=== PATIENT | male | born 1960 | race Caucasian/White ===

== ENCOUNTER 2019-09-10 12:11 | Emergency (ER) | payer MEDICAID ==
--- NOTE | 2019-09-10 12:32 | EDM.PDOC ---
ED HPI GENERAL MEDICAL PROBLEM - General Chief Complaint: Gastrointestinal Problem Stated Complaint: DIARRHEA Time Seen by Provider: 09/10/19 12:15 Source of Information: Reports: Patient History Limitations: Reports: No Limitations - History of Present Illness INITIAL COMMENTS - FREE TEXT/NARRATIVE: HISTORY AND PHYSICAL: History of present illness: Is a 59-year-old male who presents to the emergency room with complaints of diarrhea over the past 2 days. He reports he does have a history of diverticulitis which is typically diet controlled. A few weeks ago he was placed on dual antibiotic therapy for his diverticulitis and stated he felt well after completion of these medications. He admits that he has been eating high- fat diet, sugary foods and meats -believes this is causing him to have the loose stools. He typically does have blood in his stools do to hemorrhoids, no new or unusual change in bowel consistency. Patient denies any fever, chills, headache, change in vision, syncope or near syncope. Denies any chest pain, back pain, shortness of breath or cough. Denies any abdominal pain, nausea, vomiting or dysuria. Patient has been eating and drinking appropriately. Review of systems: As per history of present illness and below otherwise all systems reviewed and negative. Past medical history: As per history of present illness and as reviewed below otherwise noncontributory. Surgical history: As per history of present illness and as reviewed below otherwise noncontributory. Social history: See social history for further information Family history: As per history of present illness and as reviewed below otherwise noncontributory. Physical exam: General: Developed and well-nourished 59-year-old male. Alert and oriented. Nontoxic-appearing and in no acute distress. HEENT: Atraumatic, normocephalic, pupils equal and reactive bilaterally, negative for conjunctival pallor or scleral icterus, mucous membranes moist, TMs normal bilaterally, throat clear, neck supple, nontender, trachea midline. No drooling or trismus noted. No meningeal signs. No hot potato voice noted. Lungs: Clear to auscultation, breath sounds equal bilaterally, chest nontender. Heart: S1S2, regular rate and rhythm without overt murmur Abdomen: Soft, nondistended, nontender. Negative for masses or hepatosplenomegaly. Negative for costovertebral tenderness. Pelvis: Stable nontender. Skin: Intact, warm, dry. No lesions or rashes noted. Extremities: Atraumatic, moves all extremities per self without difficulty or deficits, negative for cords or calf pain. Neurovascular unremarkable. Neuro: Awake, alert, oriented. Cranial nerves II through XII unremarkable. Cerebellum unremarkable. Motor and sensory unremarkable throughout. Exam nonfocal. Notes: Lab called to inform me that the potassium was slightly hemolyzed, therefore will have a slightly elevated reading. Patient declined having any additional blood redrawn for repeat chemistry. CT shows moderate severity sigmoid colonic diverticulosis without evidence of diverticulitis. Tiny nonobstructing stone in the mid upper portion of the right kidney. No hydronephrosis. Mild of debris within the stomach, presumably food debris. Diffuse hepatic steatosis. The gallbladder is nondistended. No appendicitis. Patient has not been able to give a stool sample while here in the emergency room. I did give him a written prescription to do outpatient labs for stool studies along with education. We discussed signs and symptoms that would prompt him to return to the emergency room. Upon my reassessment of the patient he appears appropriate for discharge. Vital signs remained stable. Supportive care measures were reviewed and discussed. Voices understanding and is agreeable to plan of care. Denies any further questions or concerns at this time. Diagnostics: CBC, CMP, UA, stool studies Therapeutics: IV fluid, Bentyl Prescription: None Impression: Diverticulosis Plan: 1. Please make sure you are adhering to the recommended diet to avoid any future diarrhea episodes. Increase your oral fluids to prevent dehydration. May want to add bulky foods to help form your stools, bananas/rice/toast etc... 2. You have been given supplies to get a stool sample to bring back to the emergency room if the diarrhea worsens or continues. 3. You may alternate Tylenol and/or ibuprofen as needed for pain. 4. Follow-up with your primary care provider and or assistant federal public defender as we discussed. Return to the ED as needed and as discussed. Definitive disposition and diagnosis as appropriate pending reevaluation and review of above. - Related Data Allergies Allergy/AdvReac Type Severity Reaction Status Date / Time No Known Allergies Allergy Verified 09/10/19 12:28 ED ROS GENERAL - Review of Systems Review Of Systems: Comprehensive ROS is negative, except as noted in HPI. ED EXAM, GI/ABD - Physical Exam Exam: See Below (See dictation) Course - Vital Signs Last Recorded V/S: Last Vital Signs Temp 97.5 F 09/10/19 12:29 Pulse 109 H 09/10/19 12:29 Resp 18 09/10/19 12:29 BP 137/88 09/10/19 12:29 Pulse Ox 97 09/10/19 12:29 - Orders/Labs/Meds Orders: Active Orders 24 hr Category Date Time Status CAMPYLOBACTER CULT [MREF] Stat Lab 09/10/19 12:33 Ordered OVA & PARASITES BY IMMUNOASSAY [MREF] Stat Lab 09/10/19 12:33 Ordered STOOL CULTURE/SHIGA TOXIN [MREF] Stat Lab 09/10/19 12:33 Ordered Lactated Ringers [Ringers, Lactated] 1,000 ml Med 09/10/19 12:45 Active IV ASDIRECTED Medication Orders Lactated Ringer's (Ringers, Lactated) 1,000 mls @ 999 mls/hr IV ASDIRECTED ALIX Labs: Laboratory Tests 09/10/19 09/10/19 Range/Units 12:55 12:55 WBC 10.40 (4.0-11.0) K/uL RBC 5.13 (4.50-5.90) M/uL Hgb 15.1 (13.0-17.0) g/dL Hct 45.3 (38.0-50.0) % MCV 88.3 (80.0-98.0) fL MCH 29.4 (27.0-32.0) pg MCHC 33.3 (31.0-37.0) g/dL RDW Std Deviation 45.1 (28.0-62.0) fl RDW Coeff of Rickie 14 (11.0-15.0) % Plt Count 181 (150-400) K/uL MPV 10.00 (7.40-12.00) fL Neut % (Auto) 64.7 (48.0-80.0) % Lymph % (Auto) 18.8 (16.0-40.0) % Sutter % (Auto) 9.2 (0.0-15.0) % Eos % (Auto) 7.2 H (0.0-7.0) % Baso % (Auto) 0.1 (0.0-1.5) % Neut # (Auto) 6.7 H (1.4-5.7) K/uL Lymph # (Auto) 2.0 (0.6-2.4) K/uL Sutter # (Auto) 1.0 H (0.0-0.8) K/uL Eos # (Auto) 0.8 H (0.0-0.7) K/uL Baso # (Auto) 0.0 (0.0-0.1) K/uL Nucleated RBC % 0.0 /100WBC Nucleated RBCs # 0 K/uL Sodium 140 (136-148) mmol/L Potassium 5.2 H (3.5-5.1) mmol/L Chloride 106 (98-107) mmol/L Carbon Dioxide 23.8 (21.0-32.0) mmol/L BUN 11 (7.0-18.0) mg/dL Creatinine 1.0 (0.8-1.3) mg/dL Est Cr Clr Drug Dosing TNP Estimated GFR (MDRD) > 60.0 ml/min Glucose 123 H (74-106) mg/dL Calcium 8.4 L (8.5-10.1) mg/dL Total Bilirubin 0.4 (0.2-1.0) mg/dL AST 65 H (15-37) IU/L ALT 75 H (14-63) IU/L Alkaline Phosphatase 57 (46-116) U/L Total Protein 7.7 (6.4-8.2) g/dL Albumin 3.7 (3.4-5.0) g/dL Globulin 4.0 (2.6-4.0) g/dL Albumin/Globulin Ratio 0.9 (0.9-1.6) Meds: Medications Generic Name Dose Route Start Last Admin Trade Name Freq PRN Reason Stop Dose Admin Lactated Ringer's 1,000 mls @ 999 mls/hr 09/10/19 12:45 Ringers, Lactated IV ASDIRECTED ALIX Discontinued Medications Generic Name Dose Route Start Last Admin Trade Name Freq PRN Reason Stop Dose Admin Dicyclomine HCl 20 mg 09/10/19 12:39 Bentyl PO 09/10/19 12:40 ONETIME ONE Departure - Departure Time of Disposition: 14:37 Disposition: Home, Self-Care 01 Clinical Impression: Diverticulosis - Discharge Information Instructions: Diverticulosis Referrals: Adiel Paz MD [Primary Care Provider] - Forms: ED Department Discharge Additional Instructions: The following information is given to patients seen in the emergency department who are being discharged to home. This information is to outline your options for follow-up care. We provide all patients seen in our emergency department with a follow-up referral. The need for follow-up, as well as the timing and circumstances, are variable depending upon the specifics of your emergency department visit. If you don't have a primary care physician on staff, we will provide you with a referral. We always advise you to contact your personal physician following an emergency department visit to inform them of the circumstance of the visit and for follow-up with them and/or the need for any referrals to a consulting specialist. The emergency department will also refer you to a specialist when appropriate. This referral assures that you have the opportunity for follow-up care with a specialist. All of these measure are taken in an effort to provide you with optimal care, which includes your follow-up. Under all circumstances we always encourage you to contact your private physician who remains a resource for coordinating your care. When calling for follow-up care, please make the office aware that this follow-up is from your recent emergency room visit. If for any reason you are refused follow-up, please contact the [facility] Emergency Department at and asked to speak to the emergency department charge nurse. [facility] Primary Care [address] [place] [address] [place] [address] Thank you for choosing the [facility] emergency department in [place] for your medical needs today. It was a pleasure caring for you. You were seen in the emergency department for diarrhea. 1. Please make sure you are adhering to the recommended diet to avoid any future diarrhea episodes. Increase your oral fluids to prevent dehydration. May want to add bulky foods to help form your stools, bananas/rice/toast etc... 2. You have been given supplies to get a stool sample to bring back to the emergency room if the diarrhea worsens or continues. 3. You may alternate Tylenol and/or ibuprofen as needed for pain. 4. Follow-up with your primary care provider and or assistant federal public defender as we discussed. Return to the ED as needed and as discussed. Sepsis Event Note (ED) - Focused Exam Vital Signs: Vital Signs Temp Pulse Resp BP Pulse Ox 09/10/19 12:29 97.5 F 109 H 18 137/88 97 - My Orders Last 24 Hours: My Active Orders 09/10/19 12:33 CAMPYLOBACTER CULT [MREF] Stat OVA & PARASITES BY IMMUNOASSAY [MREF] Stat STOOL CULTURE/SHIGA TOXIN [MREF] Stat 09/10/19 12:45 Lactated Ringers [Ringers, Lactated] 1,000 ml IV ASDIRECTED - Assessment/Plan Last 24 Hours: My Active Orders 09/10/19 12:33 CAMPYLOBACTER CULT [MREF] Stat OVA & PARASITES BY IMMUNOASSAY [MREF] Stat STOOL CULTURE/SHIGA TOXIN [MREF] Stat 09/10/19 12:45 Lactated Ringers [Ringers, Lactated] 1,000 ml IV ASDIRECTED
[2019-09-10] MEDS ORDERED: Dicyclomine 10 MG Cap PO ONE (12:39)
[2019-09-10] MEDS ORDERED: Lactated Ringers 1,000 ML IV SCH (12:45)
[2019-09-10 13:25] LABS: BLOOD UREA NITROGEN,BUN 11 mg/dL (7.0-18.0); CARBON DIOXIDE,CO2 23.8 mmol/L (21.0-32.0); CHLORIDE,CL 106 mmol/L (98-107); GLUCOSE RANDOM 123 mg/dL (74-106); POTASSIUM,K 5.2 mmol/L (3.5-5.1); SODIUM,NA 140 mmol/L (136-148)
--- NOTE | 2019-09-10 14:31 | CT ---
INDICATION: History of diverticulosis and diverticulitis, diarrhea, bloody stool. COMPARISON: None available. TECHNIQUE: Routine CT of the abdomen and pelvis without contrast, renal stone protocol. FINDINGS: Limited visualization of the lung bases reveal no suspicious pulmonary opacities. No pericardial or pleural effusion. There is diffuse hepatic steatosis present. No splenomegaly. The left adrenal gland is unremarkable in appearance. In the right adrenal gland there is a lesion measuring 29 x 25 mm with an additional lesion measuring 18 mm, by areas of calcifications. The average Hounsfield attenuation of the dominant lesion is 27. The pancreas is unremarkable in appearance. No definite suspicious lymphadenopathy in the abdomen or pelvis. The urinary bladder is unremarkable. Mild dystrophic calcification in the prostate gland. Pelvic sidewalls are negative for adenopathy. Moderate severity sigmoid colonic diverticulosis without evidence of diverticulitis. The appendix is normal in appearance. The gallbladder is nondistended. Tiny nonobstructing calculus in the mid to upper portion of the right kidney. Small cyst in the low portion of the right kidney. No hydronephrosis in either kidney. No abdominal aortic aneurysm. No aggressive appearing osseous lesion. Large amount of debris within the stomach, presumably food debris. IMPRESSION: 1. Diffuse hepatic steatosis. 2. Large amount of debris within the stomach, presumably food debris. 3. Colonic diverticulosis, worst in the sigmoid colon where it is moderate in severity, without definite acute diverticulitis. 4. Tiny nonobstructing calculus in the right kidney. 5. No pancreatitis. 6. The gallbladder is nondistended. 7. No appendicitis. Please note that all CT scans at this facility use dose modulation, iterative reconstruction, and/or weight-based dosing when appropriate to reduce radiation dose to as low as reasonably achievable. Dictated by Carloz Albert MD @ Sep 10 2019 2:04PM (Electronically Signed)
== END 2019-09-10 15:00 | disposition home or self-care (01) ==
LOC: MW.ED 12:11
DX: K57.30 Diverticulosis of large intestine without perforation or abscess without bleeding (principal)
CPT/HCPCS: 36415; 74176; 80053; 85025; 96360; 99284; J7120; 99283

== ENCOUNTER 2020-06-02 07:18 | Emergency (ER) | payer MEDICARE, MEDICAID ==
[2020-06-02] MEDS ORDERED: Sodium Chloride 0.9% 2.5 ML Syringe FLUSH PRN (07:26)
--- NOTE | 2020-06-02 07:32 | EDM.PDOC ---
ED HPI GENERAL MEDICAL PROBLEM - General Chief Complaint: General Stated Complaint: WEAKENESS Time Seen by Provider: 06/02/20 07:19 - History of Present Illness INITIAL COMMENTS - FREE TEXT/NARRATIVE: 59-year-old male with a history of multiple personality disorder and COPD who is presenting with now resolved epigastric and lower chest ache. Patient states that this is been going on for at least 3 weeks it is an uncomfortable feeling aching sensation in his epigastric region with some mild radiation up into the chest but he denies chest pain. It is sometimes associated with discomfort in his left elbow. He says that initially it would happen at night when he laid down but now sometimes happens when he is sitting up as well. No nausea or vomiting no shortness of breath no lightheadedness, syncope or near syncope. Jona murillo also states that he has been having trouble with vertigo on and off for the last 5 years. He last experienced the vertigo 3 or 4 weeks ago. The symptoms are also associated with a sensation that his body is made of the lead that it is hard for him to move. He denies clear trigger with food. He denies prior cardiac history. He is an intermittent smoking history. Right now he is asymptomatic. Chest Pain Score (Numeric/FACES): 2 - Related Data Allergies Allergy/AdvReac Type Severity Reaction Status Date / Time shrimp Allergy Other Verified 06/02/20 07:25 Seafood Allergy Other Uncoded 06/02/20 07:25 Home Meds: Home Meds FLUoxetine [PROzac] 20 mg PO DAILY 06/02/20 [History] Montelukast [Singulair] 10 mg PO DAILY 06/02/20 [History] OLANZapine [Olanzapine] 20 mg PO DAILY 06/02/20 [History] Omeprazole 20 mg PO DAILY 14 Days #14 tablet. 06/02/20 [Rx] Prazosin [Minpress] 1 mg PO DAILY 06/02/20 [History] Propranolol [Inderal] 10 mg PO DAILY 06/02/20 [History] Tamsulosin [Flomax] 0.4 mg PO DAILY 06/02/20 [History] buPROPion [Wellbutrin SR] 100 mg PO DAILY 06/02/20 [History] Past Medical History Cardiovascular History: Reports: Arrhythmia Gastrointestinal History: Reports: Diverticulosis Psychiatric History: Reports: Bipolar, PTSD, Other (See Below) Other Psychiatric History: Disassociative Disorder - Infectious Disease History Infectious Disease History: Reports: TB Social & Family History - Family History Family Medical History: No Pertinent Family History ED ROS GENERAL - Review of Systems Review Of Systems: See Below Free Text/Narrative/Comment: General: No fever. Skin: No rash. Eyes: No vision problems. ENT: No sore throat. Neck: No neck stiffness. Respiratory: No shortness of breath. Cardiac: No chest pain. Gastrointestinal: Per HPI Urinary: No dysuria. Musculoskeletal: No myalgias/arthralgias. Neurologic: No headache. ED EXAM, GENERAL - Physical Exam Exam: See Below Free Text/Narrative:: General Appearance: No acute distress, appears comfortable Skin: No rash HEENT: Normocephalic/atraumatic, sclera anicteric, mucous membranes moist Neck: Normal range of motion Chest and Lungs: Bilateral breath sounds, clear to auscultation Cardiovascular: Regular rate and rhythm, no murmur Abdomen: Soft, non-tender Back: Normal Musculoskeletal: No edema or tenderness Neurologic: Awake, alert, no obvious deficits, moving all extremities Psychiatric: Appropriate, cooperative #1 Interpretation EKG Date: 06/02/20 Time: 07:20 EKG Interpretation Comments: Normal sinus rhythm rate of 98 normal axis intervals no acute ischemia Course - Vital Signs Last Recorded V/S: Last Vital Signs Temp 96.2 F L 06/02/20 07:26 Pulse 100 06/02/20 07:26 Resp 18 06/02/20 07:26 BP 145/87 H 06/02/20 07:26 Pulse Ox 93 L 06/02/20 07:26 - Orders/Labs/Meds Orders: Active Orders 24 hr Category Date Time Status Sodium Chloride 0.9% [Saline Flush] Med 06/02/20 07:26 Active 10 ml FLUSH ASDIRECTED PRN Sodium Chloride 0.9% [Saline Flush] Med 06/02/20 07:26 Active 2.5 ml FLUSH ASDIRECTED PRN Saline Lock Insert [OM.PC] Stat Oth 06/02/20 07:26 Ordered Medication Orders Sodium Chloride (Sodium Chloride 0.9% 10 Ml Syringe) 10 ml FLUSH ASDIRECTED PRN PRN Reason: Keep Vein Open Last Admin: 06/02/20 07:39 Dose: 10 ml Documented by: Admin: 06/02/20 07:38 Dose: 10 ml Documented by: CARMEN Sodium Chloride (Sodium Chloride 0.9% 2.5 Ml Syringe) 2.5 ml FLUSH ASDIRECTED PRN PRN Reason: Keep Vein Open Last Admin: 06/02/20 07:39 Dose: 2.5 ml Documented by: CARMEN Labs: Laboratory Tests 06/02/20 06/02/20 Range/Units 07:33 07:33 WBC 8.73 (4.0-11.0) K/uL RBC 5.28 (4.50-5.90) M/uL Hgb 15.9 (13.0-17.0) g/dL Hct 45.8 (38.0-50.0) % MCV 86.7 (80.0-98.0) fL MCH 30.1 (27.0-32.0) pg MCHC 34.7 (31.0-37.0) g/dL RDW Std Deviation 42.1 (28.0-62.0) fl RDW Coeff of Rickie 13 (11.0-15.0) % Plt Count 167 (150-400) K/uL MPV 10.40 (7.40-12.00) fL Neut % (Auto) 76.6 (48.0-80.0) % Lymph % (Auto) 15.8 L (16.0-40.0) % Kane % (Auto) 6.4 (0.0-15.0) % Eos % (Auto) 0.9 (0.0-7.0) % Baso % (Auto) 0.3 (0.0-1.5) % Neut # (Auto) 6.7 H (1.4-5.7) K/uL Lymph # (Auto) 1.4 (0.6-2.4) K/uL Kane # (Auto) 0.6 (0.0-0.8) K/uL Eos # (Auto) 0.1 (0.0-0.7) K/uL Baso # (Auto) 0.0 (0.0-0.1) K/uL Nucleated RBC % 0.0 /100WBC Nucleated RBCs # 0 K/uL Sodium 138 (136-148) mmol/L Potassium 4.0 (3.5-5.1) mmol/L Chloride 103 (98-107) mmol/L Carbon Dioxide 23.3 (21.0-32.0) mmol/L BUN 11 (7.0-18.0) mg/dL Creatinine 1.1 (0.8-1.3) mg/dL Est Cr Clr Drug Dosing 80.34 mL/min Estimated GFR (MDRD) > 60.0 ml/min Glucose 224 H (74-106) mg/dL Calcium 8.9 (8.5-10.1) mg/dL Total Bilirubin 0.4 (0.2-1.0) mg/dL AST 25 (15-37) IU/L ALT 69 H (14-63) IU/L Alkaline Phosphatase 71 (46-116) U/L Troponin I < 0.050 (0.000-0.056) ng/mL Total Protein 7.7 (6.4-8.2) g/dL Albumin 3.8 (3.4-5.0) g/dL Globulin 3.9 (2.6-4.0) g/dL Albumin/Globulin Ratio 1.0 (0.9-1.6) Lipase 91 (73-393) U/L Meds: Medications Generic Name Dose Route Start Last Admin Trade Name Freq PRN Reason Stop Dose Admin Sodium Chloride 10 ml 06/02/20 07:26 06/02/20 07:39 Sodium Chloride 0.9% 10 Ml Syringe FLUSH 10 ml ASDIRECTED PRN Administration Keep Vein Open Sodium Chloride 2.5 ml 06/02/20 07:26 06/02/20 07:39 Sodium Chloride 0.9% 2.5 Ml Syringe FLUSH 2.5 ml ASDIRECTED PRN Administration Keep Vein Open Departure - Departure Time of Disposition: 08:48 Disposition: Home, Self-Care 01 Condition: Good Clinical Impression: GERD (gastroesophageal reflux disease) - Discharge Information *PRESCRIPTION DRUG MONITORING PROGRAM REVIEWED*: Not Applicable *COPY OF PRESCRIPTION DRUG MONITORING REPORT IN PATIENT ABRAHAM: Not Applicable Prescriptions: Omeprazole 20 mg PO DAILY 14 Days #14 tablet. Instructions: Gastroesophageal Reflux Disease, Adult, [id number] Referrals: Adiel Paz MD [Primary Care Provider] - 3 Days Forms: ED Department Discharge Additional Instructions: I do think the discomfort and ache that you have been having is most likely related to acid related disease in your stomach. I recommend that you take the antacid medication 30 minutes before breakfast every day for the next 2 weeks. Please be sure to follow-up with your primary care doctor. If you experience severe chest pain shortness of breath or any other new symptoms or concern you please call your doctor right away or return to the ER The following information is given to patients seen in the emergency department who are being discharged to home. This information is to outline your options for follow-up care. We provide all patients seen in our emergency department with a follow-up referral. The need for follow-up, as well as the timing and circumstances, are variable depending upon the specifics of your emergency department visit. If you don't have a primary care physician on staff, we will provide you with a referral. We always advise you to contact your personal physician following an emergency department visit to inform them of the circumstance of the visit and for follow-up with them and/or the need for any referrals to a consulting specialist. The emergency department will also refer you to a specialist when appropriate. This referral assures that you have the opportunity for follow-up care with a specialist. All of these measure are taken in an effort to provide you with optimal care, which includes your follow-up. Under all circumstances we always encourage you to contact your private physician who remains a resource for coordinating your care. When calling for follow-up care, please make the office aware that this follow-up is from your recent emergency room visit. If for any reason you are refused follow-up, please contact the [facility] Emergency Department at and asked to speak to the emergency department charge nurse. Sepsis Event Note (ED) - Focused Exam Vital Signs: Vital Signs Temp Pulse Resp BP Pulse Ox 06/02/20 07:26 96.2 F L 100 18 145/87 H 93 L - My Orders Last 24 Hours: My Active Orders 06/02/20 07:26 Sodium Chloride 0.9% [Saline Flush] 10 ml FLUSH ASDIRECTED PRN Sodium Chloride 0.9% [Saline Flush] 2.5 ml FLUSH ASDIRECTED PRN Saline Lock Insert [OM.PC] Stat - Assessment/Plan Last 24 Hours: My Active Orders 06/02/20 07:26 Sodium Chloride 0.9% [Saline Flush] 10 ml FLUSH ASDIRECTED PRN Sodium Chloride 0.9% [Saline Flush] 2.5 ml FLUSH ASDIRECTED PRN Saline Lock Insert [OM.PC] Stat Assessment:: 59-year-old male presenting with what appears to be evening in the morning epigastric aching that seems most consistent with GERD. ACS considered I think it is less likely given lack of chest pain shortness of breath or other secondary symptoms. However, troponin is pending. EKG is without acute ischemia. Patient has no tachycardia or hypoxia no pleuritic chest pain and no shortness of breath PE felt unlikely. Nothing suggest aortic dissection to me. No signs of pericarditis on EKG. Patient's neurologic exam is nonfocal nothing suggest CVA. Right now the patient is asymptomatic. Evaluation here is unremarkable trial of PPIs and primary care follow-up seem reasonable. 0842: Patient's labs and x-ray are normal. Symptoms remain resolved. We will trial daily PPI patient will follow up with his primary care doctor.
[2020-06-02] MEDS: Sodium Chloride 0.9% 10 ML Syringe FLUSH PRN ×2 (07:38→07:39)
[2020-06-02 07:59] LABS: BLOOD UREA NITROGEN,BUN 11 mg/dL (7.0-18.0); CARBON DIOXIDE,CO2 23.3 mmol/L (21.0-32.0); CHLORIDE,CL 103 mmol/L (98-107); GLUCOSE RANDOM 224 mg/dL (74-106); LIPASE 91 U/L (73-393); SODIUM,NA 138 mmol/L (136-148)
--- NOTE | 2020-06-02 08:32 | CR ---
INDICATION: Epigastric pain. COMPARISON: none TECHNIQUE: Two view chest. FINDINGS: The lungs are clear. The heart, mediastinum and pulmonary vessels are of normal size. There is no evidence of pleural fluid. IMPRESSION: Negative chest. Dictated by Mihir John MD @ Jun 02 2020 8:31AM Signed by Dr. Mihir John @ Jun 02 2020 8:31AM
== END 2020-06-02 09:02 | disposition home or self-care (01) ==
LOC: MW.ED 07:18
DX: K21.9 Gastro-esophageal reflux disease without esophagitis (principal); Z79.899 Other long term (current) drug therapy; Z91.013 Allergy to seafood
CPT/HCPCS: 36415; 71046; 71046-26; 80053; 83690; 84484; 85025; 93005; 93010; 99283; 99285-25